=== PATIENT | female | born 1985 | race Caucasian/White ===

== ENCOUNTER 2016-12-12 22:47 | Emergency (ER) | payer MEDICAID ==
[~2016-12-12] VITALS: Ht 172.7 cm; Wt 81.8 kg
[2016-12-12 22:49] VITALS: BP 127/73; TEMP 98.2
[2016-12-12] MEDS ORDERED: WELLBUTRIN SR150 M1 PO (22:53)
[2016-12-12] MEDS ORDERED: PLAQUENIL 200M200 MG PO (22:53)
[2016-12-12] MEDS ORDERED: ALDACTONE50 MG PO (22:54)
[2016-12-12] MEDS ORDERED: NORCO 325 MG-51 TAB PO (23:19)
[2016-12-12] MEDS ORDERED: PEN-VEE K500 MG PO (23:19)
[2016-12-12 23:32] VITALS: PULSE 70
== END 2016-12-12 23:33 | disposition home or self-care (01) ==
LOC: COL.ER 22:47
DX: K08.89 Other specified disorders of teeth and supporting structures (principal); L93.0 Discoid lupus erythematosus